=== PATIENT | female | born 1955 | race Caucasian/White ===

== ENCOUNTER 2018-03-05 07:52 | Day surgery (SDC) | payer MEDICAID ==
[~2018-03-05] VITALS: Ht 157.5 cm; Wt 54.6 kg
[2018-03-05] VITALS (357 sets, daily range): BP systolic 106–135; BP diastolic 56–67; PULSE 53–71; TEMP 97.7–98.8; O2SAT 92–100
[2018-03-05 08:42] LABS: HEMOGLOBIN 12.3 g/dl (12.5-16.0); MEAN CELL VOLUME 93 fl (80.0-100.0); MEAN CORPUSCULAR HEMOGLOBIN 32 pg (27.0-31.0); MEAN CORPUSCULAR HGB CONC 34 g/dl (33.0-37.0); MEAN PLATELET VOLUME 11.3 fl (7.4-10.4); PLATELET COUNT 194 K/mm3 (130-400); REDCELL DISTRIBUTION WIDTH-CV 12.5 % (11.5-14.5)
[2018-03-05 08:43] LABS: HEMATOCRIT 36.1 % (37.0-47.0)
[2018-03-05 08:49] LABS: INR 0.9 (0.8-3.0); PROTHROMBIN TIME 10.7 SECONDS (9.7-12.8)
[2018-03-05 08:52] LABS: CREATININE, serum 0.67 mg/dL (0.52-1.25); POTASSIUM 4.5 mmol/L (3.4-5.0)
[2018-03-05] MEDS ORDERED: IMDUR 30MG30 MG/TAB PO (09:57)
[2018-03-05] MEDS ORDERED: NESINA25 PO (09:57)
[2018-03-05] MEDS ORDERED: ASPIRIN 81M81 MG/TA2 PO (09:58)
[2018-03-05] MEDS ORDERED: LIPITOR 80MG80 MG PO (09:59)
[2018-03-05] MEDS ORDERED: MULTI VITAMINS1 TAB PO (09:59)
[2018-03-05] MEDS ORDERED: ADALAT CC30 MG PO (10:01)
[2018-03-05] MEDS ORDERED: NEURONTIN300 MG/CAP PO (10:02)
[2018-03-05] MEDS ORDERED: ACTOS30 MG PO (10:02)
[2018-03-05] MEDS ORDERED: COREG 6.256.25 MG/TA PO (10:03)
[2018-03-05] MEDS ORDERED: JARDIANCE25 PO (10:04)
[2018-03-06] VITALS (391 sets, daily range): BP systolic 127–146; BP diastolic 62–78; PULSE 58–70; TEMP 98.4–99.5; O2SAT 92–100
[2018-03-06 06:02] LABS: BASO % 0.5 % (0.0-2.0); EOS # 0.1 (0.0-0.7); EOS % 1.8 % (0-4.0); GRAN # 3.9 (1.4-6.5); GRAN % 53.8 % (42.2-75.2); HEMATOCRIT 34.2 % (37.0-47.0); HEMOGLOBIN 11.7 g/dl (12.5-16.0); LYMPH # 2.6 (1.2-3.4); LYMPH % 35.4 % (20.0-51.0); MEAN CELL VOLUME 92 fl (80.0-100.0); MEAN CORPUSCULAR HEMOGLOBIN 31 pg (27.0-31.0); MEAN CORPUSCULAR HGB CONC 34 g/dl (33.0-37.0); MEAN PLATELET VOLUME 11.5 fl (7.4-10.4); MONO # 0.6 (0.1-0.6); MONO % 8.2 % (1.7-9.3); PLATELET COUNT 182 K/mm3 (130-400); RED BLOOD COUNT 3.73 M/mm3 (4.10-5.30); REDCELL DISTRIBUTION WIDTH-CV 12.6 % (11.5-14.5)
[2018-03-06 06:13] LABS: CALCIUM 9.3 mg/dL (8.4-10.2); CREATININE, serum 0.6 mg/dL (0.52-1.25); POTASSIUM 3.5 mmol/L (3.4-5.0)
[2018-03-06] MEDS ORDERED: PLAVIX 75MG TAB75 MG PO (09:11)
== END 2018-03-06 11:21 | disposition home or self-care (01) ==
LOC: COL.CAR 07:52 → ICU 12:31 → COL.CAR 03-06 11:21
PROVIDERS: Internal Medicine Cardiovascular Disease; Nurse Practitioner
DX: I25.110 Atherosclerotic heart disease of native coronary artery with unstable angina pectoris (principal); I73.9 Peripheral vascular disease, unspecified; E11.9 Type 2 diabetes mellitus without complications; I44.7 Left bundle-branch block, unspecified; I10 Essential (primary) hypertension; E78.2 Mixed hyperlipidemia
CPT/HCPCS: OP; C1725; C1760; C1769; C1874; C1887; C1894; C9600; J0583; J2250; J3010

== ENCOUNTER 2018-06-05 12:22 | Day surgery (SDC) | payer MEDICAID ==
[~2018-06-05] VITALS: Ht 157.5 cm; Wt 55.9 kg
[~2018-06-05 12:22] MED LIST: ACTOS30 MG PO; ADALAT CC30 MG PO; ASPIRIN 81M81 MG/TA2 PO; COREG 6.256.25 MG/TA PO; IMDUR 30MG30 MG/TAB PO; JARDIANCE25 PO; LIPITOR 80MG80 MG PO; MULTI VITAMINS1 TAB PO; NESINA25 PO; NEURONTIN300 MG/CAP PO; PLAVIX 75MG TAB75 MG PO
[2018-06-05 12:51] VITALS: BP 141/73; PULSE 58; TEMP 97.9
[2018-06-05] MEDS ORDERED: OMEGA-31 SGL PO (12:57)
[2018-06-05] MEDS ORDERED: PRINIVIL5 MG PO (12:59)
[2018-06-05 14:05] VITALS: BP 143/64; PULSE 65; TEMP 97.6
[2018-06-05 14:20] VITALS: BP 135/67; PULSE 61
== END 2018-06-05 14:31 | disposition home or self-care (01) ==
LOC: SDCO 12:22
DX: R19.5 Other fecal abnormalities (principal); Z53.8 Procedure and treatment not carried out for other reasons; E11.9 Type 2 diabetes mellitus without complications; Z79.84 Long term (current) use of oral hypoglycemic drugs; I25.10 Atherosclerotic heart disease of native coronary artery without angina pectoris; I73.9 Peripheral vascular disease, unspecified; Z79.899 Other long term (current) drug therapy; Z79.82 Long term (current) use of aspirin
CPT/HCPCS: OP; J2250; J3010; J7030